=== PATIENT | male | born 1945 | race Hispanic/Latino ===

== ENCOUNTER 2020-07-02 16:04 | Emergency (ER) | payer MEDICARE, BC ==
[2020-07-02 16:36] LABS: ALT (SGPT) 12 U/L (8-55); AST (SGOT) 15 U/L (5-34); Albumin 4.4 g/dL (3.4-4.8); Alkaline Phosphatase 65 U/L (40-110); Anion Gap 13 mmol/L (10-20); BUN (Urea Nitrogen) 19 mg/dL (8.4-25.7); Bilirubin, Total 0.8 mg/dL (0.2-1.2); Calc. Creatinine Clearance 0 mL/min (70-130); Calcium 8.8 mg/dL (7.8-10.44); Carbon Dioxide 27 mmol/L (23-31); Chloride 106 mmol/L (98-107); Globulin 3.3 g/dL (2.4-3.5); Glucose 102 mg/dL (83-110); Potassium 4.1 mmol/L (3.5-5.1); Protein, Total 7.7 g/dL (5.8-8.1); Sodium 142 mmol/L (136-145)
[2020-07-02 16:51] LABS: Actual Bicarbonate (HCO3v) 24 mEq/L (22-28); Base Excess -2.4 mEq/L (-2.0 to +3.0); Calcium, Ionized (venous) 1.11 mmol/L (1.16-1.32); Chloride (VBG) 105 mmol/L (98-106); Hemoglobin (Hb) 13.6 g/dL (12.6-17.4); Puncture Site Other Site; Sodium 141.2 mmol/L (133-146)
[2020-07-02 17:48] LABS: SARS-CoV-2 NAA Rapid Test DETECTED (NotDetected)
[2020-07-02 18:24] LABS: Bilirubin Neg (Negative); Blood, Urine 25 (Negative); Clarity Slightly Cloudy (Clear); Glucose, Urine (Dipstick) Normal (Negative); Ketone, Urine Negative (Negative); Leukocyte 500 (Negative); Nitrite Negative (Negative); Protein, Urine (Dipstick) 100 mg/dl (Neg-Trace); Specific Gravity, Urine 1.025 (1.002-1.036)
[2020-07-02 18:36] LABS: Bacteria/HPF 3+ HPF (None Seen); Mucous/LPF 2+ LPF (<2+); RBC/HPF 0-3 HPF (0-3); Transitional Epithelial 0-3 HPF (None Seen); WBC/HPF Greater than 50 HPF (0-3)
[2020-07-02] MEDS ORDERED: Acetaminophen 500 MG TAB ONE (18:59)
[2020-07-02] MEDS ORDERED: cefTRIAXone\\ROCEPHIN 2 GM VIAL ONE (18:59)
== END 2020-07-02 20:48 | disposition home or self-care (01) ==
LOC: CSHERS 16:04
DX: N39.0 Urinary tract infection, site not specified (principal); R50.9 Fever, unspecified; M25.512 Pain in left shoulder; M25.511 Pain in right shoulder; E78.5 Hyperlipidemia, unspecified; E78.00 Pure hypercholesterolemia, unspecified; I10 Essential (primary) hypertension
CPT/HCPCS: 0240U; 51701; 71045; 73030 ×2; 80053; 82805; 83605; 87040; 87077; 87086; 87186; 93005; 94660; 94760; 96365; 99284; 36415; 81003; 81015; J0696

== ENCOUNTER 2021-02-20 01:07 | Inpatient (IN) | payer MEDICARE, BC ==
[2021-02-20 01:47] LABS: Platelet Count 123 10x3/uL (150-450)
[2021-02-20 01:48] LABS: #Eosinphils 0.2 10x3/uL (0.0-0.5); #Neutrophils 4.1 10x3/uL (1.5-8.4); %Basophils 0.6 % (0.0-2.0); %Eosinophils 4.6 % (0.0-6.0); %Lymphocytes 10.4 % (18.0-47.0); %Monocytes 0.4 % (0.0-10.0); %Neutrophils 82.8 % (40.0-75.0); Mean Corpuscular HGB CONC 32.4 g/dL (32.0-36.0); Mean Corpuscular Hemoglobin 31.6 pg (27.0-33.0); Mean Corpuscular Volume 97.5 fl (81.2-95.1); RBC Distribution Width 14.9 % (11.5-14.5); Red Blood Cell (RBC) Count 4.43 10x6/uL (4.32-5.72)
[2021-02-20] MEDS ORDERED: Cefepime 2 GM VIAL ONE (01:56)
[2021-02-20 01:57] LABS: Lipase 68 U/L (8-78); Magnesium 1.7 mg/dL (1.6-2.6)
[2021-02-20 02:17] LABS: CKMB 2.3 ng/mL (0-6.6)
[2021-02-20 02:19] LABS: SARS-CoV-2 NAA Rapid Test Not Detected (NotDetected)
[2021-02-20 02:57] LABS: ALT (SGPT) 19 U/L (8-55); AST (SGOT) 23 U/L (5-34); Albumin 4.4 g/dL (3.4-4.8); Alkaline Phosphatase 77 U/L (40-110); Anion Gap 21 mmol/L (10-20); BUN (Urea Nitrogen) 27 mg/dL (8.4-25.7); Bilirubin, Total 0.8 mg/dL (0.2-1.2); Calc. Creatinine Clearance 0 mL/min (70-130); Calcium 8.5 mg/dL (7.8-10.44); Carbon Dioxide 17 mmol/L (23-31); Chloride 107 mmol/L (98-107); Globulin 3.5 g/dL (2.4-3.5); Glucose 106 mg/dL (83-110); Potassium 4.7 mmol/L (3.5-5.1); Protein, Total 7.9 g/dL (5.8-8.1); Sodium 140 mmol/L (136-145)
[2021-02-20] MEDS ORDERED: Calcium Carbonate 500 MG ChewTAB PO PRN (03:21)
[2021-02-20] MEDS ORDERED: Acetaminophen 325 MG TAB PO PRN (03:21)
[2021-02-20] MEDS ORDERED: Ondansetron PF 4 MG/2 ML Vial IVP PRN (03:21)
[2021-02-20] MEDS ORDERED: Guaifenesin DM 100-10/5 ML UDCUP PO PRN (03:21)
[2021-02-20] MEDS ORDERED: Senokot S 8.6-50 MG TAB PO PRN (03:21)
[2021-02-20] MEDS ORDERED: Albuterol Sulfate 2.5 mg/3 ml Neb NEB PRN (03:26)
[2021-02-20] MEDS ORDERED: Sodium Chloride 0.45% 1,000 ML IV SCH (03:30)
[2021-02-20 07:51] LABS: Lactic Acid 2.1 mmol/L (0.5-2.2)
[2021-02-20] MEDS ORDERED: Piperacillin/Tazobactam 3.375 GM in Sodium Chloride 0.9% 100 ML IVPB SCH ×3 (08:00→15:00)
[2021-02-20 08:45] LABS: CKMB 4.7 ng/mL (0-6.6)
[2021-02-20] MEDS ORDERED: Metoprolol Tartrate 50 MG TAB PO SCH (09:00)
[2021-02-20] MEDS ORDERED: Ascorbic Acid 500 mg Chewable Tablet PO SCH (09:00)
[2021-02-20] MEDS ORDERED: Cholecalciferol 1,000 UNITS (25 MCG) TAB PO SCH (09:00)
[2021-02-20] MEDS ORDERED: Amlodipine 5 MG TAB PO SCH (09:00)
[2021-02-20] MEDS ORDERED: Baclofen 10 MG TAB PO SCH (09:00)
[2021-02-20] MEDS ORDERED: Fish Oil 1,000 MG CAP PO SCH ×2 (09:00→10:45)
[2021-02-20] MEDS ORDERED: Non-Formulary Medication 1 EACH (Mecobalamin [B12 Active] 1,000 MCG Tab.Chew) PO SCH (09:00)
[2021-02-20] MEDS ORDERED: Enoxaparin Sodium 40 MG/0.4 ML SYRINGE SC SCH (09:00)
[2021-02-20] MEDS ORDERED: Gabapentin 300 MG CAP PO SCH (09:00)
[2021-02-20] MEDS ORDERED: Citalopram 20 MG TAB PO SCH (09:00)
[2021-02-20] MEDS ORDERED: Pantoprazole 40 MG VIAL IVP SCH (09:00)
[2021-02-20] MEDS ORDERED: Atorvastatin Calcium 10 MG TAB PO SCH (09:00)
[2021-02-20] MEDS ORDERED: BIOTIN 5 MG PO SCH (09:00)
[2021-02-20] MEDS ORDERED: RILUZOLE 50 MG PO SCH (09:00)
[2021-02-20] MEDS ORDERED: Aspirin 81 mg Enteric Coated Tablet PO SCH (09:00)
[2021-02-20 09:07] LABS: Actual Bicarbonate (HCO3v) 17 mEq/L (22-28); Base Excess -7.6 mEq/L (-2.0 to +3.0); Calcium, Ionized (venous) 1.06 mmol/L (1.16-1.32); Chloride (VBG) 109 mmol/L (98-106); Hemoglobin (Hb) 13.4 g/dL (12.6-17.4); Potassium (VBG) 4.49 mmol/L (3.70-5.30); Puncture Site Other Site; Sodium 139.7 mmol/L (133-146); pH (venous) 7.34 (7.32-7.43)
[2021-02-20] MEDS ORDERED: Metoprolol Tartrate 50 MG TAB ONE (11:12)
[2021-02-20] MEDS ORDERED: Aspirin Chewable 81 MG TAB ONE (11:12)
[2021-02-20] MEDS ORDERED: Amlodipine 5 MG TAB ONE (11:13)
[2021-02-20] MEDS ORDERED: Piperacillin/Tazobactam 3.375 GM VIAL ONE (11:13)
[2021-02-20] MEDS ORDERED: Gabapentin 300 MG CAP ONE (11:16)
[2021-02-20] MEDS ORDERED: Ascorbic Acid 500 mg Chewable Tablet ONE (11:16)
[2021-02-20] MEDS ORDERED: Atorvastatin Calcium 10 MG TAB ONE (11:17)
[2021-02-20] MEDS ORDERED: Sodium Bicarbonate 2.5 MEQ/5 ML VIAL ONE ×2 (11:38→12:36)
[2021-02-20] MEDS ORDERED: Lidocaine 1% PF 5 ML VIAL ONE (11:38)
[2021-02-20] MEDS ORDERED: Enoxaparin Sodium 40 MG/0.4 ML SYRINGE ONE (13:33)
[2021-02-20] MEDS ORDERED: Pantoprazole 40 MG VIAL ONE (13:34)
[2021-02-20 13:53] VITALS: BMI 25.8
[2021-02-20 14:15] LABS: CSF, Glucose 59 mg/dl (40-70); CSF, Protein 107 mg/dL (15-40)
[2021-02-20 14:41] LABS: CSF RBC Count - Manual 2 /cu.mm (None Seen); CSF Source CSF; CSF WBC/NonHematics Count-Man 12 /cu.mm (0-5); Clarity Clear (Clear); Tube # TUBE #3
[2021-02-20 15:10] LABS: Lymphocytes 94 %; Segmented Neutrophils 6 %
[2021-02-20] MEDS: Vancomycin HCl 1 GM in Sodium Chloride 0.9% 250 ML 250 ML IVPB SCH ×3 (15:35→15:41)
[2021-02-20 16:20] VITALS: BP 108/67; TEMP 98.2
[2021-02-21] MEDS ORDERED: VANCOMYCIN 1.25 GM/250 ML BAG 1.25 GM in Premix Bag 1 BAG IVPB SCH (03:00)
[2021-02-21] MEDS ORDERED: Fish Oil 1,000 MG CAP PO SCH (09:00)
== END 2021-02-20 17:00 | disposition short-term general hospital (02) | DRG 871 ==
LOC: CSHERS 01:07 → CSHERHOLD 05:41
PROVIDERS: ADMIT Emergency Medicine; ATTEND Internal Medicine
PROC: 009U3ZX Drainage of Spinal Canal, Percutaneous Approach, Diagnostic (ICD-10-PCS; principal; 2021-02-20)
PROC: B01B1ZZ Fluoroscopy of Spinal Cord using Low Osmolar Contrast (ICD-10-PCS; 2021-02-20)
DX: A41.9 Sepsis, unspecified organism (principal); J69.0 Pneumonitis due to inhalation of food and vomit; J96.01 Acute respiratory failure with hypoxia; I21.A1 Myocardial infarction type 2; E87.2 Acidosis; Z20.822 Contact with and (suspected) exposure to COVID-19; R65.20 Severe sepsis without septic shock; I10 Essential (primary) hypertension; E78.2 Mixed hyperlipidemia; F41.9 Anxiety disorder, unspecified; F32.A Depression, unspecified; I65.22 Occlusion and stenosis of left carotid artery; E86.0 Dehydration; N19 Unspecified kidney failure; G83.9 Paralytic syndrome, unspecified; D69.6 Thrombocytopenia, unspecified; Z74.01 Bed confinement status; Z88.8 Allergy status to other drugs, medicaments and biological substances; Z79.82 Long term (current) use of aspirin; Z79.899 Other long term (current) drug therapy
CPT/HCPCS: 0240U; 36415; 62270; 70450; 71045; 71250; 77002; 80053; 82553; 82805; 82945; 83605; 83690; 83735; 83880; 84145; 84157; 84484; 85025; 85060; 87040; 87070; 87077; 87149; 87186; 87205; 89051; 93005; 93306; C9113; J0692; J1650; J2543; J3370; J3490; J7050

== ENCOUNTER 2021-06-18 10:05 | Outpatient (CLI) | payer MEDICARE, BC ==
[2021-06-18 23:47] LABS: SARS-CoV-2 PCR by NAA Not Detected (NotDetected)
== END 2021-06-18 10:06 | disposition home or self-care (01) ==
LOC: CSHLAB 10:05
PROVIDERS: ATTEND Family Medicine
DX: Z20.822 Contact with and (suspected) exposure to COVID-19 (principal)
CPT/HCPCS: U0003; U0005